=== PATIENT | male | born 1940 | race Caucasian/White ===

== ENCOUNTER 2016-07-01 23:30 | Emergency (ER) | payer MEDICARE, BC ==
--- NOTE | 2016-07-02 00:09 | ERNOTE ---
Lower Extremity HPI - Narrative Date of Service: 07/01/16 - General Lower Extremities Pain: knee: left - deformity Time Seen by Provider: 07/02/16 00:03 Source: patient Exam Limitations: no limitations - Immun/Allergies/Home Medications Immunizations: IMMUNIZATION HX Immunizations Up to Date Yes History of Influenza Vaccine Yes Hx Pneumococcal Vaccination Yes Allergies/Adverse Reactions: Allergies Allergy/AdvReac Type Severity Reaction Status Date / Time Penicillins Allergy Verified 07/01/16 23:48 Home Medications: HOME MEDICATIONS Multivitamin [One Daily Essential] 1 each PO DAILY 07/01/16 [Last Taken Unknown] - History of Present Illness Narrative: 75-year-old gentleman states he was walking out of her friend's house missed a step and fell backwards and felt a snap in his left knee. Unable to ambulate after that and an ambulance was called. Obvious deformity of the left knee noted Review of Systems - Review of Systems Constitutional: Present: no symptoms reported EYE: Present: no symptoms reported ENT: Present: no symptoms reported Respiratory: Present: no symptoms reported Cardiology: Present: no symptoms reported Gastrointestinal/Abdominal: Present: no symptoms reported Genitourinary: Present: no symptoms reported Musculoskeletal: Present: See HPI Skin: Present: no symptoms reported Neurological: Present: no symptoms reported Endocrine: Present: no symptoms reported Hematologic/Lymphatic: Present: no symptoms reported Psych: Present: no symptoms reported - Patient's Past Medical History Patient History - Medical: No pertinent hx Patient History - Cancer: Skin Patient History - Surgical Procedures: T & A - Social History Living Situations: home Smoking Status: Never smoker Alcohol Use: none Drug Use: none Physical Exam - Physical Exam General Appearance: Present: wd/wn, alert, no apparent distress Eye Exam: Normal inspection: bilateral, PERRL: bilateral Ears, Nose, Throat: Present: normal ENT inspection, hearing grossly normal, normal pharynx Neck: Present: normal inspection, nontender Respiratory: Present: no respiratory distress, normal breath sounds, no accessory muscle use, chest nontender, lungs clear Cardiovascular/Chest: Present: regular rate, rhythm, no murmur, normal peripheral pulses Gastrointestinal/Abdominal: Present: normal bowel sounds, nontender, nondistended, soft, no organomegaly Rectal Exam: Present: deferred Back Exam: Present: normal inspection, normal range of motion, no CVA tenderness , no vertebral tenderness Extremity Exam: Present: decreased range of motion - unable to extend lower left leg, other - patella is palpable and retracted proximally with apparent rupture of the quadriceps tendon from the anterior tibial tuberosity Neurological Exam: Present: alert, oriented, normal mood/affect, no motor/ sensory deficits Skin Exam: Present: normal color, warm/dry Lymphatic Exam: Present: no adenopathy ED Progress - Vital Signs Vital Signs: Vital Signs 07/01/16 23:32 Temperature 36.8 C Pulse Rate 102 H Respiratory 16 Rate Blood Pressure 131/80 O2 Sat by Pulse 95 Oximetry - X-Ray X-Ray #1 X-Ray: knee - proximal retraction of the patella. No evidence of fracture or dislocation of the knee joint Interpretation: Interp. by me - Progress/Reassessment Chief Complaint: Lower Extremity Pain/ Injury Plan - Plan Plan: Discussed with Dr. Dubose he ordered a knee immobilizer and crutches for ambulation and to have the patient call first thing Sunday for an appointment in the office. He will likely repair the rupture on Sunday Departure Clinical Impression: Patellar tendon rupture Qualifiers: Encounter type: initial encounter Laterality: left Qualified Code(s): S86.812A - Strain of other muscle(s) and tendon(s) at lower leg level, left leg, initial encounter - Departure Disposition: Home self-care Condition: Fair Instructions: Tendon Injury Additional Instructions: Use immobilizer and crutches for ambulation. Call Dr. Power's office first thing Sunday for an appointment time [phone]
[2016-07-02 00:56] VITALS: BP 138/79
== END 2016-07-02 00:35 | disposition home or self-care (01) ==
LOC: ER 23:30
PROC: 2W3MX1Z Immobilization of Left Lower Extremity using Splint (ICD-10-PCS; principal; 2016-07-01)
DX: S76.112A Strain of left quadriceps muscle, fascia and tendon, initial encounter (principal); W10.8XXA Fall (on) (from) other stairs and steps, initial encounter; Y92.019 Unspecified place in single-family (private) house as the place of occurrence of the external cause

== ENCOUNTER 2016-07-05 08:51 | Day surgery (SDC) | payer MEDICARE, BC ==
[~2016-07-05 08:51] MED LIST: HYDROmorphone HCL 2 MG/ML VIAL IV PRN; RINGERS SOLUTION,LACTATED 1,000 ML IV PRN; ceFAZolin SODIUM 1 GM VIAL IV PRN; oxyCODONE HCL/ACETAMINOPHEN 1 TAB TABLET PO PRN
[2016-07-05] MEDS ORDERED: RINGERS SOLUTION,LACTATED 1,000 ML IV ONE (10:45)
[2016-07-05] MEDS ORDERED: BUPIVACAINE HCL 50 ML VIAL IJ ONE ×2 (10:47)
[2016-07-05 14:36] VITALS: BP 136/80
== END 2016-07-05 08:52 | disposition home or self-care (01) ==
LOC: AMB 08:51
PROVIDERS: ATTEND Orthopaedic Surgery
PROC: 0LMR0ZZ Reattachment of Left Knee Tendon, Open Approach (ICD-10-PCS; principal; 2016-07-05 11:00)
DX: S76.112A Strain of left quadriceps muscle, fascia and tendon, initial encounter (principal); Z68.24 Body mass index [BMI] 24.0-24.9, adult; W10.9XXA Fall (on) (from) unspecified stairs and steps, initial encounter